=== PATIENT | female | born 1965 | race American Indian/Alaskan Native ===

== ENCOUNTER 2020-06-13 14:09 | Outpatient (CLI) | payer OTHER ==
--- NOTE | 2020-06-14 08:24 | Mammography Report ---
DIGITAL SCREENING MAMMOGRAM WITH CAD, 06/13/2020 INDICATION: Routine screening mammography. TECHNIQUE: Digital bilateral 2D mammography was obtained in the craniocaudal and mediolateral obliq ue projections. This examination was interpreted with the benefit of Computer-Aided Detection analysi s. COMPARISON: 07/02/2016 FINDINGS: Breast Density: There are scattered areas of fibroglandular density. There is no evidence of dominant mass, suspicious calcifications or architectural distortion in the r ight breast. There is a 6 mm oval nodule that has developed in the left breast at 9-10:00, middle dep th, approximately 3 cm deep to the nipple. This will need further evaluation with ultrasound. Otherwi se, no additional significant interval change noted. IMPRESSION: New 6 mm left breast nodule at 9-10:00. Follow up recommendation: Left breast ultrasound. If no sonographic correlate is identified, spot com pression views may also be required. Category 0: Incomplete. Needs additional imaging evaluation and/or prior mammograms for comparison. A "normal" or negative report should not discourage follow up or biopsy of a clinically significant f inding. A written summary of these findings will be mailed to the patient. The patient will be entered into a mammography reporting system which will generate a reminder letter for the patient's next appointmen t at the appropriate interval. The [employer] recommends yearly mammograms starting at age 40 and continuing as l hilda as a woman is in good health. Breast MRI is recommended for women with an approximate 20-25% or greater lifetime risk of breast cancer, including women with a strong family history of breast or ova suraj cancer or who have been treated for Hodgkin's disease. Signer Name: Mary Vaughn MD Signed: 06/14/2020 8:20 AM Workstation Name: [employer]
== END 2020-06-13 14:10 | disposition home or self-care (01) ==
LOC: MAMMO 14:09
PROVIDERS: ATTEND Internal Medicine
DX: Z12.31 Encounter for screening mammogram for malignant neoplasm of breast (principal); N64.89 Other specified disorders of breast
CPT/HCPCS: 77067